=== PATIENT | male | born 1945 | race African-American/Black ===

== ENCOUNTER 2020-02-22 08:17 | Emergency (ER) | payer BC, OTHER ==
[~2020-02-22] VITALS: Ht 182.9 cm; Wt 95.0 kg
[2020-02-22 08:21] VITALS: BP 134/78
[2020-02-22] MEDS ORDERED: ACETAMINOPHEN 325MG TABLET PO STA (08:52)
[2020-02-22] MEDS ORDERED: SODIUM CHLORIDE 0.9% 500 ML IV ONE (09:00)
[2020-02-22] MEDS ORDERED: ASPIRIN 81MG TABLET PO ONE (09:00)
[2020-02-22 09:11] LABS: HEMATOCRIT. 42.8 % (42.0-52.0); HEMOGLOBIN. 14.3 g/dL (14.0-18.0); MEAN CORPUSCULAR HEMOGLOBIN 31.1 pg (28.0-32.0); MEAN CORPUSCULAR VOLUME 92.8 fL (80.0-94.0); MEAN PLATELET VOLUME 8.2 fl (7.4-10.4); PLATELET 161 x1000/uL (130-400); RED BLOOD CELL COUNT 4.61 mill/uL (4.7-6.1); RED CELL DISTRIBUTION WIDTH 14.4 % (11.6-14.6)
[2020-02-22 09:15] LABS: CHLORIDE 102 mEq/L (98-107)
[2020-02-22 09:39] LABS: PLATELET ESTIMATE NORMAL
== END 2020-02-22 13:58 | disposition home or self-care (01) ==
LOC: ER 08:17
DX: B34.9 Viral infection, unspecified (principal); M79.18 Myalgia, other site; R50.9 Fever, unspecified; J45.909 Unspecified asthma, uncomplicated; I49.9 Cardiac arrhythmia, unspecified; Z20.828 Contact with and (suspected) exposure to other viral communicable diseases
CPT/HCPCS: 36415; 71045; 80053; 83880; 84484; 85025; 87635; 93005; 96360; 96361; 99284; J7040

== ENCOUNTER 2021-01-19 10:57 | Emergency (ER) | payer OTHER ==
[~2021-01-19] VITALS: Ht 180.3 cm; Wt 100.0 kg
[2021-01-19] MEDS ORDERED: HYDROCODONE/ACETAMINOPHEN 5/325MG TABLET PO ONE (13:15)
[2021-01-19 13:29] VITALS: BP 142/72
== END 2021-01-19 15:00 | disposition home or self-care (01) ==
LOC: ER 10:57
DX: M25.512 Pain in left shoulder (principal); I11.9 Hypertensive heart disease without heart failure; J45.909 Unspecified asthma, uncomplicated; V43.52XA Car driver injured in collision with other type car in traffic accident, initial encounter; Y93.89 Activity, other specified; Y92.488 Other paved roadways as the place of occurrence of the external cause
CPT/HCPCS: 73030; 99283; A4565